=== PATIENT | female | born 1980 | race Caucasian/White ===

== ENCOUNTER 2017-09-16 19:23 | Emergency (ER) | payer OTHER ==
--- NOTE | 2017-09-16 20:01 | PD ---
HPI Chief Complaint Decreased movement for 2 days Date Seen: Sep 16, 2017 Time Seen: 19:55 Travel History International Travel<30 Days: No Contact w/Intl Traveler<30Days: No Known Affected Area: No History of Present Illness HPI Patient is 37-year-old white female at 29 weeks goes to the [facility] clinic and complaints of decreased movement for 2 days. She tried today to eat some sweet drinks and food but baby is still not increase his activity so she called the doctor and they told her to come here . Since being here on OB ED she has felt baby move several times and the NST is very reactive Weeks Gestation: 29 Para: 0 : 1 History Social History Alcohol Use: No Tobacco Use: No Substance Abuse: No Allergies-Medications (Allergen,Severity, Reaction): Coded Allergies: No Known Allergies (Verified Allergy, Mild, 09/16/17) Review of Systems General / Constitutional: No: Fever, Weight Gain, Chills, Other Eyes: No: Diploplia, Blurred Vision, Visual changes, Pain, Photophobia HENT: No: Headaches, Vertigo, Lightheadedness Cardiovascular: No: Irregular Rhythm, Chest Pain or Discomfort, Palpitations, Tachycardia, Syncope, Varicosities, Edema, Cyanosis Respiratory: No: Cough, Short of Breath, Other Gastrointestinal: No: Nausea, Vomiting, Diarrhea Genitourinary: No: Decreased Urinary Output, Oliguria Musculoskeletal: No: Limited ROM, Weakness, Cramping, Edema, Pain Skin: No Rash, No Itching, No Dryness, No Lumps, No Change in Pigmentation, No Change in Nails, No Alopecia, No Lesions Neurologic: No: Weakness, Dizziness, Syncope, Focal Abnormalities, Coordination Problem, Headache, Slurred Speech, Seizures Psychiatric: No: Depression, Suicidal Ideations, Homicidal Ideation Endocrine: No: Heat Intolerance, Cold Intolerance, Polydipsia, Polyuria, Other Physical Exam Narrative GENERAL: Well-nourished, well-developed patient. SKIN: Warm and dry. HEAD: Normocephalic and atraumatic. EYES: No scleral icterus. No injection or drainage. ENT: No nasal drainage noted. Mucous membranes pink. Airway patent. NECK: Supple, trachea midline. No JVD. CARDIOVASCULAR: Regular rate and rhythm without murmurs, gallops, or rubs. RESPIRATORY: Breath sounds equal bilaterally. No accessory muscle use. BREASTS: Bilateral exam showed no masses , no retractions, no nipple discharge. ABDOMEN/GI: Abdomen soft, non-tender, bowel sounds present, no rebound, no guarding Gravid to [29-] weeks size Fundal Height: [29-] GENITOURINARY: Contractions: [none-] FHT's: Category: [-1] Baseline: [-133] Reactive: [R-] Variability: [mod-] Decels: [none-] EXTREMITIES: No cyanosis or edema. BACK: Nontender without obvious deformity. No CVA tenderness. NEUROLOGICAL: Awake and alert. Motor and sensory grossly within normal limits. Five out of 5 muscle strength in all muscle groups. Normal speech. MDM Interpretation(s) Patient is a 47-year-old female at 29 weeks who has decreased movement 2 days. Since being here on OB ED however she is active, heart rate tracing is reactive and there are no contractions Plan Plan to discharge patient home monitor kick counts and to follow-up with her OB provider Diagnosis Diagnosis: Primary Impression: Decreased movement affecting management of in third trimester Additional Impression: 29 weeks gestation of Disposition: 01 DISCHARGE HOME Condition: Stable Patient Instructions: General Instructions, Having Your Baby: The Labor Process (GEN), Movement (ED) Additional Instructions: Drink 8-10 large glasses of water per day. Come back to the [facility] with concerns of decreased movement, leaking of fluids, vaginal bleeding, or regular contractions. Departure Forms: Tests/Procedures Kleber Acevedo II, MD Sep 16, 2017 20:01
== END 2017-09-16 20:13 | disposition home or self-care (01) ==
LOC: HOBED 19:23
DX: O36.8130 Decreased fetal movements, third trimester, not applicable or unspecified (principal); Z3A.29 29 weeks gestation of pregnancy
CPT/HCPCS: 99283

== ENCOUNTER 2017-11-27 17:06 | Observation (INO) ==
[2017-11-27 17:59] LABS: Bilirubin,Urine Negative (Negative); Clarity,Urine Clear (Clear); Color,Urine Colorless (Yellw/Straw); Glucose,Urine (UA) Negative (Negative); Leukocyte Esterase,Urine Negative (Negative); Nitrite,Urine Negative (Negative); Specific Gravity,Urine 1.002 (1.002-1.035); Squamous Epithelial Cell,Urine <1 /hpf (0-5)
[2017-11-27 18:00] LABS: Hematocrit 33.7 % (35.0-46.0); Mean Corpuscular HGB Conc 35.6 % (32.0-36.0); Mean Corpuscular Hemoglobin 33.3 pg (27.0-34.0); Mean Corpuscular Volume 93.6 fL (80.0-100.0); Mean Platelet Volume 7.6 fL (7.0-11.0); Platelet Count 251 th/mm3 (150-450); Red Cell Distribution Width 12.7 % (11.6-17.2)
[2017-11-27 18:04] LABS: Amphetamine Urine With Conf Neg (Neg); Benzodiazepine Urine With Conf Neg (Neg)
--- NOTE | 2017-11-27 18:06 | ED ---
HPI - - General Source: patient - History of Present Illness Associated symptoms: nausea, headache - Related Data : 1 (C section 5 d ago) Para: 1 - General Chief complaint: OB/Uterine Contractions Stated complaint: PP, High BP/ Del:11/22 - History of Present Illness HPI narrative: This patient delivered her first baby by [address] Culp , she has been at home with the last several days the and she is very stressed out because of just new motherhood she has been up at night and not sleeping hardly at all the last 3-4 days, today she had a headache and developed some nausea but no vomiting. She called Dr. Culp's office and they told her to come in here to have her blood pressure checked, blood pressure is 157/100 166/98, 148/98. Patient has no history of hypertension in her or ever in her life. The patient is stressed out she appears tearful at times worried that she might be from her baby today or tonight. Plan to check [facility] lab (Kleber Acevedo) - Related Data Home Medications Medication Instructions Recorded Confirmed acetaminophen [Tylenol] 650 mg PO Q6H PRN 11/27/17 11/27/17 ibuprofen 600 mg PO QID PRN 11/27/17 11/27/17 Allergies Allergy/AdvReac Type Severity Reaction Status Date / Time acetaminophen AdvReac Unknown Nausea/Vomi Verified 11/22/17 09:19 ting oxycodone AdvReac Unknown Nausea/Vomi Verified 11/27/17 18:57 ting Review of Systems Ears, Nose, Mouth, and Throat: Reports headache(s) Gastrointestinal: Reports nausea PMFSH - - Past Medical History Surgical history: Reports: Physical Exam - General Limitations: no limitations - Head Head exam: normal inspection - Eye Eye exam: Present: PERRL - Respiratory Respiratory exam: Present: normal lung sounds bilaterally - Cardiovascular Cardiovascular exam: Present: regular rate, normal rhythm - Abdominal Exam Abdominal exam: Present: normal bowel sounds, incision - Neurological Exam Neurological exam: Present: alert, oriented X3 - Expanded Neurological Exam Patient oriented to: Present: person, place, time Speech: Present: fluid speech - Skin Skin exam: Present: warm, dry Initial Documented Vital Signs Pulse Rate 62 11/27/17 17:20 Blood Pressure 157/100 H 11/27/17 17:20 Last Documented Vital Signs Temperature 98.5 F 11/27/17 17:24 Pulse Rate 61 11/27/17 19:03 Respiratory Rate 18 11/27/17 19:01 Blood Pressure 153/93 H 11/27/17 19:03 MDM - OB/Uterine Contractions - Lab Data Result diagrams: 11/27/17 17:30 11/27/17 17:30 - [facility] Narrative Medical decision making narrative: This patient is a 37-year-old white female who is 5 days post now presenting with headache and nausea and elevated blood pressures that are all in the 140s-150s over 90s, she has no proteinuria, PIH labs normal except for slightly elevated liver functions with AST and ALT in the 70s/100 range Discussed the patient with Dr. Briones who is covering for her group tonIperia and she recommended admission with IV magnesium for 24 hours and recheck her lab tomorrow Plan is admit 23 hour obvious IV magnesium per protocol treat hypertension if it goes above thresholds noted, and reevaluate tomorrow (Kleber Acevedo) - Lab Data Lab Results 11/27/17 11/27/17 11/27/17 Range/Units 17:20 17:20 17:30 WBC 7.0 (4.0-11.0) th/mm3 RBC 3.60 L (4.00-5.30) mil/mm3 Hgb 12.0 (11.6-15.3) gm/dL Hct 33.7 L (35.0-46.0) % MCV 93.6 (80.0-100.0) fL MCH 33.3 (27.0-34.0) pg MCHC 35.6 (32.0-36.0) % RDW 12.7 (11.6-17.2) % Plt Count 251 (150-450) th/mm3 MPV 7.6 (7.0-11.0) fL Sodium (136-145) meq/L Potassium (3.5-5.1) meq/L Chloride (98-107) meq/L Carbon Dioxide (21.0-32.0) meq/L Anion Gap (5-15) meq/L BUN (7-18) mg/dL Creatinine (0.50-1.00) mg/dL Estimated GFR (>89) mL/min Random Glucose (74-106) mg/dL Uric Acid (2.6-6.0) mg/dl Calcium (8.5-10.1) mg/dL Total Bilirubin (0.2-1.0) mg/dL AST (15-37) U/L ALT (10-53) U/L Alkaline Phosphatase (45-117) U/L Total Protein (6.4-8.2) g/dL Albumin (3.4-5.0) g/dL Urine Color Colorless (Yellw/Straw) Urine Clarity Clear (Clear) Urine pH 6.0 (5.0-8.5) Ur Specific [place] 1.002 (1.002-1.035) Urine Protein Negative (Neg-Trace) mg/dL Urine Glucose (UA) Negative (Negative) mg/dL Urine Ketones Negative (Negative) mg/dL Urine Occult Blood Moderate H (Negative) Urine Nitrate Negative (Negative) Urine Bilirubin Negative (Negative) Urine Urobilinogen Less than 2 (Less than 2) mg/dL Ur Leukocyte Esterase Negative (Negative) Urine WBC Less than 1 (0-5) /hpf Ur Squamous Epith Cells <1 (0-5) /hpf Micro UA Comment Culture not ind Urine Culture Comments Culture not ind Urine Opiates Screen Neg (Neg) Ur Barbiturates Screen Neg (Neg) Ur Amphetamine Screen Neg (Neg) U Benzodiazepines Scrn Neg (Neg) Urine Cocaine Screen Neg (Neg) U Cannabinoids Screen Neg (Neg) 11/27/17 Range/Units 17:30 WBC (4.0-11.0) th/mm3 RBC (4.00-5.30) mil/mm3 Hgb (11.6-15.3) gm/dL Hct (35.0-46.0) % MCV (80.0-100.0) fL MCH (27.0-34.0) pg MCHC (32.0-36.0) % RDW (11.6-17.2) % Plt Count (150-450) th/mm3 MPV (7.0-11.0) fL Sodium 139 (136-145) meq/L Potassium 3.8 (3.5-5.1) meq/L Chloride 105 (98-107) meq/L Carbon Dioxide 24.6 (21.0-32.0) meq/L Anion Gap 9 (5-15) meq/L BUN 13 (7-18) mg/dL Creatinine 0.57 (0.50-1.00) mg/dL Estimated GFR Greater than 89 (>89) mL/min Random Glucose 81 (74-106) mg/dL Uric Acid 4.7 (2.6-6.0) mg/dl Calcium 8.1 L (8.5-10.1) mg/dL Total Bilirubin 0.2 (0.2-1.0) mg/dL AST 77 H (15-37) U/L ALT 111 H (10-53) U/L Alkaline Phosphatase 112 (45-117) U/L Total Protein 6.5 (6.4-8.2) g/dL Albumin 2.8 L (3.4-5.0) g/dL Urine Color (Yellw/Straw) Urine Clarity (Clear) Urine pH (5.0-8.5) Ur Specific [place] (1.002-1.035) Urine Protein (Neg-Trace) mg/dL Urine Glucose (UA) (Negative) mg/dL Urine Ketones (Negative) mg/dL Urine Occult Blood (Negative) Urine Nitrate (Negative) Urine Bilirubin (Negative) Urine Urobilinogen (Less than 2) mg/dL Ur Leukocyte Esterase (Negative) Urine WBC (0-5) /hpf Ur Squamous Epith Cells (0-5) /hpf Micro UA Comment Urine Culture Comments Urine Opiates Screen (Neg) Ur Barbiturates Screen (Neg) Ur Amphetamine Screen (Neg) U Benzodiazepines Scrn (Neg) Urine Cocaine Screen (Neg) U Cannabinoids Screen (Neg)
[2017-11-27 18:11] LABS: Alanine Aminotransferase 111 U/L (10-53); Albumin 2.8 g/dL (3.4-5.0); Anion Gap 9 meq/L (5-15); Aspartate Aminotransferase 77 U/L (15-37); Blood Urea Nitrogen 13 mg/dL (7-18); Calcium 8.1 mg/dL (8.5-10.1); Carbon Dioxide 24.6 meq/L (21.0-32.0); Chloride 105 meq/L (98-107); Glomerular Filtration Rate Greater Than 89 mL/min (>89); Glucose,Random 81 mg/dL (74-106); Potassium 3.8 meq/L (3.5-5.1); Sodium 139 meq/L (136-145); Uric Acid 4.7 mg/dl (2.6-6.0)
[2017-11-27 18:14] LABS: Alkaline Phosphatase 112 U/L (45-117); Total Protein 6.5 g/dL (6.4-8.2)
[2017-11-27] MEDS ORDERED: Mag Sulf/Water 40 gm/1000 ml 40 GM/1,000 ML BAG IV.CONT ONE (19:57)
[2017-11-27] MEDS ORDERED: NIFEdipine 10 MG Capsule PO PRN (19:59)
[2017-11-27] MEDS ORDERED: Zolpidem Tartrate 5 MG Tablet PO PRN (19:59)
[2017-11-27] MEDS ORDERED: Mag Sulf/Water 4 gm/100 ml 100 ML IV.SIG ONE (19:59)
[2017-11-27] MEDS ORDERED: Acetaminophen 325 MG Tablet PO PRN (19:59)
[2017-11-27] MEDS ORDERED: Docusate Sodium 100 MG Capsule PO PRN (19:59)
[2017-11-27] MEDS ORDERED: Mag Sulf/Water 40 gm/1000 ml 40 GM/1,000 ML BAG IV.CONT SCH (20:00)
[2017-11-28 06:05] LABS: Hematocrit 37.3 % (35.0-46.0); Mean Corpuscular HGB Conc 34.9 % (32.0-36.0); Mean Corpuscular Hemoglobin 32.2 pg (27.0-34.0); Mean Corpuscular Volume 92.4 fL (80.0-100.0); Mean Platelet Volume 7.3 fL (7.0-11.0); Platelet Count 278 th/mm3 (150-450); Red Blood Count 4.03 mil/mm3 (4.00-5.30); Red Cell Distribution Width 12.2 % (11.6-17.2); White Blood Count 7.5 th/mm3 (4.0-11.0)
[2017-11-28 06:23] LABS: Albumin 2.8 g/dL (3.4-5.0); Uric Acid 5.1 mg/dl (2.6-6.0)
[2017-11-28 06:25] LABS: Total Protein 6.8 g/dL (6.4-8.2)
[2017-11-28] MEDS ORDERED: Prenatal Vit/Ca/Iron/Folic Acid Tablet PO SCH (09:00)
--- NOTE | 2017-11-28 13:08 | P.PNOB ---
Subjective Post op day: 6 Interval history: Readmitted yesterday with elevated BP, headaches. Had BP up to 160's in triage. LFT elevated. She was admitted for magneisum for pp preeclampsia. GOOD is mild now. She is very tired, she has not slept well in last 3-4 days. Does not want to sleep in hospital tonight if she is able to go home safely. Mild lochia. voiding without difficulty. Tracey po, but has mild nausea. Objective Vital Signs/I&O: Vital Signs 11/27/17 17:20 11/27/17 17:24 11/27/17 17:27 Temperature 98.5 F Pulse Rate 62 57 L Respiratory Rate 19 Blood Pressure 157/100 H 166/98 H 11/27/17 17:49 11/27/17 18:30 11/27/17 18:45 Temperature Pulse Rate 63 54 L 55 L Respiratory Rate Blood Pressure 132/81 144/84 H 11/27/17 19:01 11/27/17 19:03 11/27/17 20:05 Temperature Pulse Rate 61 59 L Respiratory Rate 18 16 Blood Pressure 153/93 H 171/95 H 11/27/17 20:11 11/27/17 20:15 11/27/17 20:20 Temperature Pulse Rate 67 66 66 Respiratory Rate 16 Blood Pressure 148/86 H 145/85 H 135/80 11/27/17 20:25 11/27/17 21:16 11/27/17 21:17 Temperature 98.2 F Pulse Rate 68 67 Respiratory Rate 18 Blood Pressure 134/84 143/93 H 11/27/17 23:00 11/28/17 01:00 11/28/17 04:00 Temperature Pulse Rate 66 71 71 Respiratory Rate Blood Pressure 136/95 H 135/84 127/90 11/28/17 05:00 11/28/17 06:00 11/28/17 07:25 Temperature 97.9 F Pulse Rate 68 75 71 Respiratory Rate Blood Pressure 143/92 H 129/93 H 133/95 H 11/28/17 07:26 11/28/17 08:00 11/28/17 08:30 Temperature Pulse Rate 73 Respiratory Rate 17 18 Blood Pressure 140/93 H 11/28/17 09:30 11/28/17 09:53 11/28/17 11:11 Temperature 98.3 F Pulse Rate 81 88 Respiratory Rate 16 17 17 Blood Pressure 138/93 H 144/93 H 11/28/17 12:00 Temperature Pulse Rate 87 Respiratory Rate Blood Pressure 135/94 H Intake & Output 11/27/17 11/28/17 11/28/17 18:59 06:59 18:59 Weight 63.503 kg Result Diagrams: 11/28/17 04:59 11/27/17 17:30 Objective Remarks: GENERAL: Well-nourished, well-developed patient. CARDIOVASCULAR: Regular rate and rhythm without murmurs, gallops, or rubs. RESPIRATORY: Breath sounds equal bilaterally. No accessory muscle use. ABDOMEN/GI: Abdomen soft, non-tender, bowel sounds present. Incision: Clean, dry and intact. Fundus: Firm, non-tender at umbilicus. GENITOURINARY: Light to moderate bleeding. EXTREMITIES: No cyanosis or edema, non-tender, without signs of DVT. 3+ reflexes Medications and IVs: Active Medications Acetaminophen (Tylenol) 650 mg PO Q4H PRN PRN Reason: PAIN SCALE 1 TO 2 Last Admin: 11/28/17 06:24 Dose: 650 mg Calcium Gluconate (Calcium Gluconate Inj) 1 gm IV.PUSH PRN PRN PRN Reason: Magnesium toxicity Docusate Sodium (Colace) 100 mg PO BID PRN PRN Reason: CONSTIPATION Lactated Ringer's (Lr 1000 Ml Inj) 1,000 mls @ 75 mls/hr IV.CONT .[id number] [facility] Last Admin: 11/27/17 22:02 Dose: 75 mls/hr Magnesium Sulfate (Magnesium Sulfate/Water 40 Gm/1000 Ml Premix) 40 gm in 1, 000 mls @ 50 mls/hr IV.CONT Q24H [facility] Stop: 11/28/17 16:00 Last Admin: 11/27/17 22:03 Dose: 2 gm/hr, 50 mls/hr Nifedipine (Procardia) 10 mg PO NOW PRN PRN Reason: SEE LABEL COMMENTS Nifedipine (Procardia) 20 mg PO NOW PRN PRN Reason: SEE LABEL COMMENTS Nifedipine (Procardia) 20 mg PO NOW PRN PRN Reason: SEE LABEL COMMENTS Ondansetron HCl (Zofran Odt) 4 mg PO Q6H PRN PRN Reason: NAUSEA OR VOMITING Vit/Calcium/Iron/Folic Ac (Stuartnatal Plus 3) 1 tab PO DAILY NABIL Sodium Chloride (Ns Flush) 2 ml IV.FLUSH BID NABIL Last Admin: 11/27/17 23:19 Dose: Not Given Sodium Chloride (Ns Flush) 2 ml IV.FLUSH PRN PRN PRN Reason: FLUSH AFTER USING IV ACCESS Zolpidem Tartrate (Ambien) 5 mg PO HS PRN PRN Reason: INSOMNIA Assessment and Plan - Diagnosis (1) Preeclampsia in period Code(s): O14.95 - Unspecified pre-eclampsia, complicating the puerperium Status: Acute - Plan 37 yo P1 s/p Primary ltcd for breech presentation on November 22, readmitted POD 5 for pre-eclampsia Atypical pre-eclampsia- BP mild range now, no proteinuria. LFT elevated with slight drop this morning. She is on IV Magnesium presently, has brisk reflexes , no clonus. will continue Magnesium until this afternoon, repeat labs at 1600. After magnesium is discontinued, she will be observed for at least 4 hours to see if BP medication required prior to discharge. Reviewed that she needs to be seen on 12/05 in office and will need weekly labs to ensure LFT return to baseline. POD 6 - cont routine supportive care, support
[2017-11-28 16:34] LABS: Hematocrit 40.1 % (35.0-46.0); Hemoglobin 13.7 gm/dL (11.6-15.3); Mean Corpuscular HGB Conc 34.2 % (32.0-36.0); Mean Corpuscular Hemoglobin 32.1 pg (27.0-34.0); Mean Corpuscular Volume 93.9 fL (80.0-100.0); Platelet Count 319 th/mm3 (150-450); Red Blood Count 4.27 mil/mm3 (4.00-5.30); Red Cell Distribution Width 12.7 % (11.6-17.2); White Blood Count 8.4 th/mm3 (4.0-11.0)
[2017-11-28 17:04] LABS: Alanine Aminotransferase 112 U/L (10-53); Alkaline Phosphatase 130 U/L (45-117); Anion Gap 9 meq/L (5-15); Aspartate Aminotransferase 74 U/L (15-37); Blood Urea Nitrogen 11 mg/dL (7-18); Calcium 6.7 mg/dL (8.5-10.1); Carbon Dioxide 25.6 meq/L (21.0-32.0); Chloride 103 meq/L (98-107); Glomerular Filtration Rate Greater Than 89 mL/min (>89); Glucose,Random 109 mg/dL (74-106); Potassium 3.7 meq/L (3.5-5.1); Sodium 138 meq/L (136-145); Total Protein 7.1 g/dL (6.4-8.2)
[2017-11-28] MEDS ORDERED: Labetalol 100 MG Tablet PO SCH (17:35)
[2017-11-28] MEDS ORDERED: Acetaminophen 325 MG Tablet PO PRN (19:06)
[2017-11-28] MEDS ORDERED: Ibuprofen 600 MG Tablet PO PRN (19:06)
[2017-11-28] MEDS ORDERED: Labetalol 100 MG Tablet PO ONE (20:00)
[2017-11-29] MEDS ORDERED: Labetalol 200 MG Tablet PO SCH (09:00)
== END 2017-11-28 20:37 | disposition home or self-care (01) ==
LOC: H2E 17:06 → HOBED 17:06 → H2E 21:30
PROVIDERS: ADMIT Obstetrics & Gynecology; ATTEND Obstetrics & Gynecology